=== PATIENT | male | born 1985 | race Two or more races ===

== ENCOUNTER 2019-04-07 02:09 | Emergency (ER) | payer MEDICAID ==
[~2019-04-07] VITALS: Ht 170.2 cm; Wt 80.7 kg
--- NOTE | 2019-04-07 02:43 | NUR ---
BIBWIFE FROM HOME TO ER BED 7. AAOX4. NO RESP DISTRESS NOTED. WHEELED INTO ER. C/O L FLANK PAIN STARTED 4 HOURS AGO. PT REPORTS PAIN 10/10 [place]ARP. PT IS UNABLE TO STAY STILL AND RESTLESS. PT REPORTS HX OF KIDNEY STONE, HE SAY PAIN THIS TIME IS MORE THAT THE LAST ONE. MD AT BEDSIDE FOR EVAL. ORDERS RECEIVED NOTED AND CARRIED OUT,
[2019-04-07] MEDS ORDERED: MORPHINE SULFATE INJ 4 MG/ML DISP.SYRIN ONE (02:48)
[2019-04-07] MEDS ORDERED: ONDANSETRON HCL/PF 4 MG/2 ML VIAL ONE (02:48)
--- NOTE | 2019-04-07 02:48 | NUR ---
BLOOD DRAWN AND GIVEN TO LAB
--- NOTE | 2019-04-07 02:50 | NUR ---
IV LINE OBTAINED ON L AC 18G. BLOOD DRAWN AND SENT GIVEN TO [facility] AT BEDSIDE
[2019-04-07 02:57] LABS: BASOPHILS % (AUTO) 0.5 % (0.0-2.0); EOSINOPHILS % (AUTO) 2.5 % (0.0-6.0); HEMATOCRIT 40 % (39-51); HEMOGLOBIN 13.9 g/dL (13.5-17.5); LYMPHOCYTES # (AUTO) 2.8 /CMM (0.8-4.8); MEAN CORPUSCULAR HGB CONC 35 g/dl (31.0-36.0); MEAN CORPUSCULAR VOLUME 91 fL (80-96); MONOCYTES # (AUTO) 0.4 /CMM (0.1-1.30); MONOCYTES % (AUTO) 4.5 % (2.0-12.0); NEUTROPHILS # (AUTO) 5.9 /CMM (1.8-8.9); NEUTROPHILS % (AUTO) 62.5 % (43.0-81.0); PLATELET COUNT (AUTO) 249 /CMM (150-450); RED BLOOD CELL COUNT(AUTO) 4.38 MIL/uL (4.5-6.0); WHITE BLOOD COUNT (AUTO) 9.4 K/uL (4.3-11.0)
[2019-04-07 02:58] LABS: APPEARANCE,URINE CLEAR (CLEAR); BILIRUBIN,URINE NEGATIVE (NEGATIVE); BLOOD, URINE MODERATE Ery/uL (NEGATIVE); COLOR,URINE YELLOW (YELLOW); KETONES,URINE NEGATIVE (NEGATIVE); LEUKOCYTE ESTERASE ,URINE TRACE (NEGATIVE); NITRITE, URINE NEGATIVE (NEGATIVE); PH,URINE 7.5 (5.0-8.0); PROTEIN,URINE 30 mg/dl (NEGATIVE); UGLUCOSE NEGATIVE (NEGATIVE)
[2019-04-07] MEDS ORDERED: MORPHINE SULFATE INJ 2 MG/ML DISP.SYRIN IV ONE (03:00)
[2019-04-07] MEDS ORDERED: ONDANSETRON HCL/PF 4 MG/2 ML VIAL IVP ONE (03:00)
[2019-04-07] MEDS ORDERED: IV NS 0.9% 1,000 ML BAG IV ONE (03:00)
[2019-04-07 03:05] LABS: CALCIUM, SERUM 8.7 mg/dL (8.5-10.1); CREATININE 0.9 mg/dL (0.6-1.3); POTASSIUM 3.5 mmol/L (3.5-5.1)
--- NOTE | 2019-04-07 03:17 | NUR ---
BACK FROM CT
[2019-04-07] MEDS ORDERED: KETOROLAC TROMETHAMINE INJ 30 MG/ML VIAL IV ONE (03:30)
[2019-04-07 03:34] LABS: BACTERIA,URINE Few /HPF (None Seen); RBC,URINE 21-50 /HPF (0-2); SQUAMOUS EPITHELIAL CELL,UR Rare /HPF (None Seen); WBC,URINE 21-50 /HPF (0-3)
[2019-04-07] MEDS ORDERED: KETOROLAC TROMETHAMINE INJ 30 MG/ML VIAL ONE (03:40)
--- NOTE | 2019-04-07 03:56 | NUR ---
Patient discharged to home in stable condition. Written and verbal after care instructions given. Patient verbalizes understanding of instruction. IV removed. Catheter intact and site benign. Pressure and 4x4 applied to site. No bleeding noted. pt ambulatory with a steady gait.
[2019-04-07 03:57] VITALS: BP 136/72
== END 2019-04-07 03:58 | disposition home or self-care (01) ==
LOC: ER 02:11
DX: N20.0 Calculus of kidney (principal); R11.2 Nausea with vomiting, unspecified; Z87.442 Personal history of urinary calculi
CPT/HCPCS: 36415; 74176; 80048; 81001; 85025; 87086; 96361; 96374; 96375; 99284; J1885; J2270; J2405; J7030; 81000-TC